=== PATIENT | female | born 1955 | race Caucasian/White ===

== ENCOUNTER 2023-04-05 08:00 | Outpatient (CLI) | payer MEDICARE, BC ==
[2023-04-05 14:30] LABS: BILIRUBIN,URINE NEGATIVE (NEGATIVE); GLUCOSE, URINE (UA) NEGATIVE (NEGATIVE); KETONES,URINE (UA) NEGATIVE (NEGATIVE); LEUKOCYTE ESTERASE, URINE TRACE (NEGATIVE); NITRITE,URINE POSITIVE (NEGATIVE); OCCULT BLOOD,URINE SMALL (NEGATIVE); PROTEIN,URINE NEGATIVE (NEGATIVE); UROBILINOGEN,URINE 0.2 (NORMAL) E.U./dL (NORMAL)
[2023-04-05 15:28] LABS: BACTERIA,URINE Moderate /HPF (None Seen); CLARITY,URINE SL. CLOUDY (CLEAR); RBC,URINE 0-5 /HPF (0-5); SQUAMOUS EPITHELIAL CELL,UR RARE Squamous (<= Few); WBC CLUMPS,URINE PRESENT
== END 2023-04-05 23:59 | disposition home or self-care (01) ==
LOC: LAB.S 08:00
PROVIDERS: ATTEND Emergency Medicine
DX: R30.0 Dysuria (principal)
CPT/HCPCS: 81001; 87086; 87181